=== PATIENT | male | born 1995 | race Caucasian/White ===

== ENCOUNTER 2024-06-23 12:58 | Emergency (ER) | payer SELFPAY ==
[2024-06-23 13:01] VITALS: BP 159/97
[2024-06-23 13:22] LABS: % Basophils 0.5 % (0-2); % Eosinophils 1.1 % (0-6); % Immature Granulocytes 0.3 % (0-0.5); % Lymphocytes 14.9 % (20.5-51.1); % Monocytes 6.8 % (1.7-9.3); % Neutrophils 76.4 % (42.2-75.2); Absolute Basophils 0.1 10^3/uL (0-0.2); Absolute Eosinophils 0.1 10^3/uL (0-0.7); Absolute Lymphocytes 1.9 10^3/uL (1.2-3.4); Absolute Monocytes 0.9 10^3/uL (0.1-0.6); Absolute Neutrophils 9.8 10^3/uL (1.4-6.5); Hematocrit 47.2 % (39.0-52.0); Hemoglobin 16.2 g/dL (13.0-18.0); Mean Corp Hgb Conc. 34.3 g/dL (33.0-37.0); Mean Corpuscular Hgb 31.2 pg (27.0-31.0); Mean Corpuscular Volume 90.8 fL (80.0-94.0); Mean Platelet Volume 9.7 fL (7.4-10.4); Nucleated Red Blood Cells % 0 % (-); Platelet Count 294 10^3/uL (130-400); Red Cell Dist. Width 13.4 % (11.5-14.5); White Blood Cell Count 12.8 10^3/uL (4.8-10.8)
[2024-06-23 13:28] LABS: ALT (SGPT) 31 U/L (0-50); AST (SGOT) 29 U/L (17-59); Albumin 4.8 g/dl (3.5-5.0); Alkaline Phosphatase 71 U/L (38-126); Blood Urea Nitrogen 35 mg/dl (9-20); Calcium 10.3 mg/dl (8.4-10.2); Carbon Dioxide 23 mmol/L (22-30); Chloride 108 mmol/L (98-107); Glucose 111 mg/dl (70-99); Magnesium 1.9 mg/dl (1.6-2.3); Potassium 4.6 mmol/L (3.5-5.1); Sodium 142 mmol/L (135-145); Total Bilirubin 0.5 mg/dl (0.2-1.3); Total Protein 7.2 g/dl (6.3-8.2); eGFR > 60.00
--- NOTE | 2024-06-23 15:01 | ED.GENMED ---
History of Present Illness
General
Chief Complaint: Heart Rate Problem
Source: patient
Time Seen by Provider: 06/23/24 14:52
History of Present Illness
History of Present Illness:
28-year-old male presents to the emergency room complaining of palpitations and his Apple Watch telling him he had a rapid and irregular heartbeat while sleeping. Patient feels fine. He went to the gym and did feel short of breath when exercising.
Patient denies any medical or cardiology problems. He has been eating and drinking well. He denies any recreational drug use.
Past History
Social History
Tobacco: Non-smoker
Alcohol: None
Drug: None
Phy Exam
Physical Exam
Physical Exam:
General: Awake, Alert, Oriented X3. No acute distress.
Vitals: unremarkable
Head: Atraumatic
Eyes: Pupils equal, EOMI
Throat: Airway intact, no exudates
Neck: Trachea midline
Lungs: Clear and equal b/l
Heart: Regular rate, no murmurs
Abd: Soft, Nontender, No pulsatile mass
Neuro: Nonfocal
Skin: Warm, dry, no rash
Extremities: pulses equal b/l, no edema
Course
Orders/Labs/Results
Orders:
Orders
06/23/24 13:00
Electrocardiogram (*1) Urgent
Reason for Study: Chest Pain
EKG- Treatment ONCE
06/23/24 13:10
Complete Blood Count/With Diff Urgent
Comprehensive Metabolic Panel Urgent
Magnesium Urgent
TSH Urgent
Abnormal Lab Results
06/23/24
13:10
WBC 12.8 H 10^3/uL
(4.8-10.8)
MCH 31.2 H pg
(27.0-31.0)
Absolute Neuts (auto) 9.8 H 10^3/uL
(1.4-6.5)
Absolute Monos (auto) 0.9 H 10^3/uL
(0.1-0.6)
Neutrophils % 76.4 H %
(42.2-75.2)
Lymphocytes % 14.9 L %
(20.5-51.1)
Chloride 108 H mmol/L
(98-107)
BUN 35 H mg/dl
(9-20)
Glucose 111 H mg/dl
(70-99)
Calcium 10.3 H mg/dl
(8.4-10.2)
06/23/24 13:10
06/23/24 13:10
Vital Signs
Initial and Last Documented VS:
Initial Vital Signs
Temp Pulse Resp BP Pulse Ox
98.2 F 85 20 159/97 97
06/23/24 13:01 06/23/24 13:01 06/23/24 13:01 06/23/24 13:01 06/23/24 13:01
Last Documented Vital Signs
Temp Pulse Resp BP Pulse Ox
98.2 F 85 20 159/97 97
06/23/24 13:01 06/23/24 13:01 06/23/24 13:01 06/23/24 13:01 06/23/24 13:01
MDM/Problems Addressed
Differential Diagnosis Includes:
PACs, PVCs, sinus tachycardia, dysrhythmia
MDM/Problems Addressed:
Patient presents for palpitations. His Apple Watch suggested that he had a rapid heart rate and might be in A-fib. Here his EKG is sinus rhythm with 1 PAC. Patient looks well. Labs show that he is perhaps mildly dehydrated with a BUN of 35 and
creatinine 1.2. He is noted to be somewhat hypertensive. No indication for hospitalization. Recommend pushing oral fluids. Follow-up primary care provider.
*Pulse Oximetry
Patient hypoxic: no
*EKG
Interpreted by ED Provider?: Yes
Heart Rate: 71
Rate: normal
Rhythm: sinus and PAC's
[place]: normal axis
Interval: normal interval
QRS Pattern: normal QRS
Ischemia: no ischemia
*Spot Machine Operator Interpretation
Rate: normal
Interpretation: normal
Heart Rate: 71
Rhythm: sinus and PAC's
*Critical Care Note
Total Time (30-74mins, 75-104mins- exclusive of procedures): Not Applicable
ED Attending Note
-
Portions of this chart may have been created with voice recognition software.� Occasional wrong word or��sound alike� substitutions may have occurred due to the inherent limitations of voice recognition software.
Discharge Plan
Departure
Patient Disposition: Home (Routine Discharge)
Date of Disposition: 06/23/24
Time of Disposition: 15:01
Patient with high blood pressure during this ER visit?: Yes
Condition: Good
Discharge Problem:
Palpitations, Acute dehydration
Instructions: Palpitations (DC), Dehydration in adults - ED discharge instructions
Prescriptions:
No Action
No Current Medications
0
Activity Restrictions/Additional Instructions:
Drink more fluids as your blood work shows you are a bit dehydrated
Interventions
Interventions:
*General Assessment Last Done: 06/23/24 13:01
*Nursing Disposition Last Done: 06/23/24 15:21
ED- Cardiac Assessment Last Done: 06/23/24 15:20
ED- Pulmonary Assessment Last Done: 06/23/24 15:20
Discharge Date and Time
Discharge Date/Time: 06/23/24 15:22
Print Language: [id number]
== END 2024-06-23 15:22 | disposition home or self-care (01) ==
LOC: EMR 12:58
PROVIDERS: Emergency Medicine; EMERGENCY PHYSICIAN Emergency Medicine; FAMILY PHYSICIAN Family Medicine
DX: R00.2 Palpitations (principal); E86.0 Dehydration; R03.0 Elevated blood-pressure reading, without diagnosis of hypertension
CPT/HCPCS: 99284; 80053; 83735; 84443; 85025; 93005